=== PATIENT | male | born 1980 | race Caucasian/White ===

== ENCOUNTER 2017-10-05 00:52 | Inpatient (IN) | payer MEDICAID ==
[~2017-10-05] VITALS: Ht 167.6 cm; Wt 66.0 kg
[2017-10-05 02:50] VITALS: BP 152/90
[2017-10-05] MEDS ORDERED: mag hydrox/Alum hydrox/simeth 30ml oral suspension PO PRN (04:15)
[2017-10-05] MEDS ORDERED: metoclopramide 5 mg/ml inj IV PRN (04:15)
[2017-10-05] MEDS ORDERED: HYDROcodone/acetaminophen 5mg/325mg tablet PO PRN (04:15)
[2017-10-05] MEDS ORDERED: morphine 4 MG/ML inj SYRINge IV PRN (04:15)
[2017-10-05] MEDS ORDERED: acetaminophen 650mg rectal suppository RC PRN (04:15)
[2017-10-05] MEDS ORDERED: diphenhydrAMINE 50 mg/ml inj IV PRN (04:15)
[2017-10-05] MEDS ORDERED: ondansetron/PF 4mg/2ml inj IV PRN (04:15)
[2017-10-05] MEDS ORDERED: bisacodyl 10mg suppository rectal RC PRN (04:15)
[2017-10-05] MEDS ORDERED: magnesium hydroxide 30ml (MOM) UD suspension PO PRN (04:15)
[2017-10-05] MEDS ORDERED: acetaminophen 325mg tablet PO PRN (04:15)
[2017-10-05] MEDS: dextrose 5%-1/2 normal saline 1,000 ML IV SCH ×3 (04:47→23:00)
[2017-10-05] MEDS: morphine 4 MG/ML inj SYRINge IV PRN (04:48)
[2017-10-05 06:00] VITALS: BP 118/64
[2017-10-05] MEDS ORDERED: docusate sod 100mg capsule PO SCH (08:00)
[2017-10-05] MEDS: ceFAZolin 1GM/D5W- ADD-VANTAGE 50 ML IV SCH ×2 (08:08→16:03)
[2017-10-05] MEDS: pantoprazole 40mg Tablet.DR PO SCH (08:09)
[2017-10-05 08:43] LABS: BASOPHILS # (AUTO) 0.1 X10'3 (0-0.2); BASOPHILS % (AUTO) 0.4 % (0-1); EOSINOPHILS # (AUTO) 0.4 X10'3 (0-0.9); EOSINOPHILS % (AUTO) 3.2 % (0-6); HEMATOCRIT 41.6 % (42.0-52.0); HEMOGLOBIN 14.4 g/dl (14.0-17.9); LYMPHOCYTES # (AUTO) 2.7 X10'3 (1.1-4.8); LYMPHOCYTES % (AUTO) 21.2 % (21-51); MEAN CORPUSCULAR HEMOGLOBIN 30.9 PG (27.0-31.0); MEAN CORPUSCULAR HGB CONC 34.5 % (33.0-36.5); MEAN CORPUSCULAR VOLUME 89.4 FL (78-98); MEAN PLATELET VOLUME 8.4 FL (7.4-10.4); MONOCYTES # (AUTO) 1.4 X10'3 (0-0.9); MONOCYTES % (AUTO) 11.2 % (2-12); NEUTROPHILS # (AUTO) 8.1 X10'3 (1.8-7.7); PLATELET COUNT 235 X10'3 (140-440); RED BLOOD COUNT 4.66 X10'6 (4.70-6.10); RED CELL DISTRIBUTION WIDTH 12.8 % (11.5-14.5); WHITE BLOOD COUNT 12.7 X10'3 (4.5-11.0)
[2017-10-05 08:54] LABS: PARTIAL THROMBOPLASTIN TIME 28 SECONDS (22-32); PROTHROMBIN TIME 10.5 SECONDS (9.0-12.0)
[2017-10-05 09:00] LABS: ALBUMIN 3.2 G/DL (3.4-5.0); ALBUMIN/GLOBULIN RATIO 0.8 (1.1-1.5); ALKALINE PHOSPHATASE 80 IU/L (46-116); ANION GAP 1 (8-16); ASPARTATE AMINO TRANSFERASE 16 U/L (10-37); BILIRUBIN,TOTAL 0.7 MG/DL (0.1-1.0); BLOOD UREA NITROGEN 9 MG/DL (7-18); BUN/CREATININE RATIO 10.3 (5.4-32.0); CALCIUM 8.8 MG/DL (8.5-10.1); CHLORIDE 101 MMOL/L (99-107); CREATININE 0.87 MG/DL (0.60-1.10); GLUCOSE 101 MG/DL (70-104); POTASSIUM 3.7 MMOL/L (3.5-5.1); SODIUM 133 MMOL/L (135-145); TOTAL CARBON DIOXIDE 30.8 MMOL/L (24-32); TOTAL PROTEIN 7.2 G/DL (6.4-8.2); eGFR > 90 ML/MIN
[2017-10-05 09:16] LABS: ALANINE AMINOTRANSFERASE 18 U/L (12-78)
[2017-10-05 09:44] LABS: CLARITY,URINE Clear (Clear); COLOR,URINE Yellow (Yellow); GLUCOSE, URINE Negative (Neg); KETONES,URINE Negative (Neg); LEUKOCYTE ESTERASE ,URINE Negative (Neg); NITRITES, URINE Negative (Neg); OCCULT BLOOD,URINE Negative (Neg); PH,URINE 6.5 (4.8-8.0); PROTEIN,URINE Negative (Neg)
[2017-10-05 09:45] LABS: UA COLLECTION TYPE CLN CATCH MIDSTREAM
[2017-10-05 09:55] LABS: URINE AMPHETAMINE SCREEN POSITIVE (Neg); URINE BARBITUATE SCREEN NEGATIVE (Neg); URINE BENZODIAZEPINES SCREEN NEGATIVE (Neg); URINE CANNABINOID SCREEN POSITIVE (Neg); URINE COCAINE SCREEN NEGATIVE (Neg); URINE METHADONE SCREEN NEGATIVE (Neg); URINE OPIATE SCREEN POSITIVE (Neg); URINE PHENCYCLIDINE SCREEN NEGATIVE (Neg)
[2017-10-05 10:00] VITALS: BP 119/67
[2017-10-05] MEDS ORDERED: tetanus & diphtheria toxoid (Td) vaccine 0.5ml IMVAC ONE (11:30)
[2017-10-05] MEDS ORDERED: CLIN300C54 PO (14:53)
[2017-10-05] MEDS ORDERED: HYDR-569 PO (14:53)
[2017-10-05] MEDS: nicotine 14mg patch - 24hr TD SCH (16:54)
[2017-10-05 18:00] VITALS: BP 131/53
[2017-10-05] MEDS: lactobacillus rhamnosus 10,000 MMU CELLS/CAPSULE PO SCH (19:39)
[2017-10-05] MEDS ORDERED: temazepam 15mg capsule PO PRN (21:00)
[2017-10-05 22:00] VITALS: BP 147/66
[2017-10-06] MEDS: ceFAZolin 1GM/D5W- ADD-VANTAGE 50 ML IV SCH ×3 (00:11→15:53)
[2017-10-06 06:00] VITALS: BP 127/87
[2017-10-06 06:24] LABS: BASOPHILS # (AUTO) 0.1 X10'3 (0-0.2); BASOPHILS % (AUTO) 0.6 % (0-1); EOSINOPHILS # (AUTO) 0.3 X10'3 (0-0.9); EOSINOPHILS % (AUTO) 3.4 % (0-6); HEMATOCRIT 37.9 % (42.0-52.0); HEMOGLOBIN 13.1 g/dl (14.0-17.9); LYMPHOCYTES # (AUTO) 2.8 X10'3 (1.1-4.8); MEAN CORPUSCULAR HEMOGLOBIN 30.9 PG (27.0-31.0); MEAN CORPUSCULAR HGB CONC 34.5 % (33.0-36.5); MEAN CORPUSCULAR VOLUME 89.5 FL (78-98); MEAN PLATELET VOLUME 8.7 FL (7.4-10.4); MONOCYTES % (AUTO) 9.9 % (2-12); NEUTROPHILS # (AUTO) 5.6 X10'3 (1.8-7.7); NEUTROPHILS % (AUTO) 57.1 % (42-75); PLATELET COUNT 238 X10'3 (140-440); RED BLOOD COUNT 4.23 X10'6 (4.70-6.10); RED CELL DISTRIBUTION WIDTH 12.7 % (11.5-14.5); WHITE BLOOD COUNT 9.8 X10'3 (4.5-11.0)
[2017-10-06 06:44] LABS: ALANINE AMINOTRANSFERASE 21 U/L (12-78); ALBUMIN 2.8 G/DL (3.4-5.0); ALBUMIN/GLOBULIN RATIO 0.8 (1.1-1.5); ALKALINE PHOSPHATASE 67 IU/L (46-116); ANION GAP 9 (8-16); ASPARTATE AMINO TRANSFERASE 13 U/L (10-37); BILIRUBIN,TOTAL 0.2 MG/DL (0.1-1.0); BLOOD UREA NITROGEN 12 MG/DL (7-18); BUN/CREATININE RATIO 14.1 (5.4-32.0); CALCIUM 8.5 MG/DL (8.5-10.1); CHLORIDE 103 MMOL/L (99-107); CREATININE 0.85 MG/DL (0.60-1.10); GLUCOSE 124 MG/DL (70-104); POTASSIUM 3.6 MMOL/L (3.5-5.1); SODIUM 139 MMOL/L (135-145); TOTAL CARBON DIOXIDE 27.1 MMOL/L (24-32); TOTAL PROTEIN 6.5 G/DL (6.4-8.2); eGFR > 90 ML/MIN
[2017-10-06] MEDS: pantoprazole 40mg Tablet.DR PO SCH (08:17)
[2017-10-06] MEDS: lactobacillus rhamnosus 10,000 MMU CELLS/CAPSULE PO SCH ×2 (08:18→19:53)
[2017-10-06] MEDS: nicotine 14mg patch - 24hr TD SCH (08:18)
[2017-10-06] MEDS: HYDROcodone/acetaminophen 10/325mg tab PO PRN ×3 (08:19→22:24)
[2017-10-06] MEDS: morphine 4 MG/ML inj SYRINge IV PRN (10:27)
[2017-10-06] MEDS: dextrose 5%-1/2 normal saline 1,000 ML IV SCH ×2 (10:27→19:53)
[2017-10-06] MEDS ORDERED: iohexol 300mg/ml 100ml inj. ONE (15:59)
[2017-10-06 18:00] VITALS: BP 141/63
[2017-10-07] MEDS: ceFAZolin 1GM/D5W- ADD-VANTAGE 50 ML IV SCH ×4 (00:31→23:59)
[2017-10-07] MEDS: HYDROcodone/acetaminophen 10/325mg tab PO PRN ×4 (04:02→22:55)
[2017-10-07] MEDS: dextrose 5%-1/2 normal saline 1,000 ML IV SCH ×2 (05:19→16:20)
[2017-10-07 05:53] LABS: BASOPHILS # (AUTO) 0.1 X10'3 (0-0.2); BASOPHILS % (AUTO) 0.8 % (0-1); EOSINOPHILS # (AUTO) 0.4 X10'3 (0-0.9); EOSINOPHILS % (AUTO) 4.7 % (0-6); HEMATOCRIT 38.4 % (42.0-52.0); HEMOGLOBIN 13.5 g/dl (14.0-17.9); LYMPHOCYTES # (AUTO) 2.9 X10'3 (1.1-4.8); LYMPHOCYTES % (AUTO) 34.6 % (21-51); MEAN CORPUSCULAR HEMOGLOBIN 31.4 PG (27.0-31.0); MEAN CORPUSCULAR HGB CONC 35.3 % (33.0-36.5); MEAN PLATELET VOLUME 8.4 FL (7.4-10.4); MONOCYTES # (AUTO) 0.7 X10'3 (0-0.9); NEUTROPHILS # (AUTO) 4.3 X10'3 (1.8-7.7); NEUTROPHILS % (AUTO) 51.9 % (42-75); PLATELET COUNT 262 X10'3 (140-440); RED BLOOD COUNT 4.31 X10'6 (4.70-6.10); RED CELL DISTRIBUTION WIDTH 12.8 % (11.5-14.5); WHITE BLOOD COUNT 8.3 X10'3 (4.5-11.0)
[2017-10-07 06:00] VITALS: BP 108/75
[2017-10-07 06:19] LABS: ALANINE AMINOTRANSFERASE 15 U/L (12-78); ALBUMIN 2.8 G/DL (3.4-5.0); ALBUMIN/GLOBULIN RATIO 0.7 (1.1-1.5); ALKALINE PHOSPHATASE 73 IU/L (46-116); ANION GAP 7 (8-16); ASPARTATE AMINO TRANSFERASE 12 U/L (10-37); BILIRUBIN,TOTAL 0.2 MG/DL (0.1-1.0); BLOOD UREA NITROGEN 12 MG/DL (7-18); BUN/CREATININE RATIO 14.6 (5.4-32.0); CALCIUM 8.6 MG/DL (8.5-10.1); CHLORIDE 104 MMOL/L (99-107); CREATININE 0.82 MG/DL (0.60-1.10); GLUCOSE 95 MG/DL (70-104); POTASSIUM 3.9 MMOL/L (3.5-5.1); SODIUM 138 MMOL/L (135-145); TOTAL CARBON DIOXIDE 27.3 MMOL/L (24-32); TOTAL PROTEIN 7.1 G/DL (6.4-8.2); eGFR > 90 ML/MIN
[2017-10-07] MEDS: pantoprazole 40mg Tablet.DR PO SCH (07:20)
[2017-10-07] MEDS: lactobacillus rhamnosus 10,000 MMU CELLS/CAPSULE PO SCH ×2 (07:20→19:54)
[2017-10-07] MEDS: nicotine 14mg patch - 24hr TD SCH (07:21)
[2017-10-07 10:00] VITALS: BP 123/58
[2017-10-07 18:00] VITALS: BP 128/78
[2017-10-07 22:00] VITALS: BP 124/80
[2017-10-07] MEDS: morphine 4 MG/ML inj SYRINge IV PRN (23:01)
[2017-10-08] MEDS: dextrose 5%-1/2 normal saline 1,000 ML IV SCH ×2 (02:41→11:35)
[2017-10-08 06:59] VITALS: BP 121/69
[2017-10-08 07:36] LABS: BASOPHILS # (AUTO) 0.1 X10'3 (0-0.2); BASOPHILS % (AUTO) 0.9 % (0-1); EOSINOPHILS # (AUTO) 0.4 X10'3 (0-0.9); EOSINOPHILS % (AUTO) 4.9 % (0-6); HEMOGLOBIN 13.7 g/dl (14.0-17.9); LYMPHOCYTES # (AUTO) 2.7 X10'3 (1.1-4.8); LYMPHOCYTES % (AUTO) 34.5 % (21-51); MEAN CORPUSCULAR HGB CONC 34.3 % (33.0-36.5); MEAN CORPUSCULAR VOLUME 90.3 FL (78-98); MEAN PLATELET VOLUME 8.9 FL (7.4-10.4); MONOCYTES # (AUTO) 0.6 X10'3 (0-0.9); NEUTROPHILS % (AUTO) 51.7 % (42-75); PLATELET COUNT 293 X10'3 (140-440); RED BLOOD COUNT 4.43 X10'6 (4.70-6.10); RED CELL DISTRIBUTION WIDTH 12.9 % (11.5-14.5); WHITE BLOOD COUNT 7.8 X10'3 (4.5-11.0)
[2017-10-08] MEDS: nicotine 14mg patch - 24hr TD SCH (07:37)
[2017-10-08] MEDS: ceFAZolin 1GM/D5W- ADD-VANTAGE 50 ML IV SCH (07:37)
[2017-10-08] MEDS: lactobacillus rhamnosus 10,000 MMU CELLS/CAPSULE PO SCH (07:37)
[2017-10-08] MEDS: pantoprazole 40mg Tablet.DR PO SCH (07:37)
[2017-10-08] MEDS: HYDROcodone/acetaminophen 10/325mg tab PO PRN ×2 (07:38→12:34)
[2017-10-08 07:56] LABS: ALANINE AMINOTRANSFERASE 19 U/L (12-78); ALBUMIN 2.9 G/DL (3.4-5.0); ALBUMIN/GLOBULIN RATIO 0.7 (1.1-1.5); ALKALINE PHOSPHATASE 71 IU/L (46-116); ANION GAP 8 (8-16); ASPARTATE AMINO TRANSFERASE 12 U/L (10-37); BILIRUBIN,TOTAL 0.1 MG/DL (0.1-1.0); BLOOD UREA NITROGEN 12 MG/DL (7-18); BUN/CREATININE RATIO 14.5 (5.4-32.0); CALCIUM 8.6 MG/DL (8.5-10.1); CHLORIDE 104 MMOL/L (99-107); CREATININE 0.83 MG/DL (0.60-1.10); GLUCOSE 88 MG/DL (70-104); POTASSIUM 4.1 MMOL/L (3.5-5.1); SODIUM 138 MMOL/L (135-145); TOTAL CARBON DIOXIDE 26.1 MMOL/L (24-32); TOTAL PROTEIN 6.8 G/DL (6.4-8.2); eGFR > 90 ML/MIN
[2017-10-08 11:29] VITALS: BP 127/76
[2017-10-08] MEDS ORDERED: CEPH500C5 PO (11:29)
== END 2017-10-08 14:45 | disposition home or self-care (01) | DRG 383 ==
LOC: ORTHO 4S 02:54
PROVIDERS: ADMIT Family Medicine; ATTEND Family Medicine
DX: L03.113 Cellulitis of right upper limb (principal); E87.1 Hypo-osmolality and hyponatremia; I10 Essential (primary) hypertension; F11.10 Opioid abuse, uncomplicated; F15.10 Other stimulant abuse, uncomplicated; F17.200 Nicotine dependence, unspecified, uncomplicated; B95.61 Methicillin susceptible Staphylococcus aureus infection as the cause of diseases classified elsewhere
CPT/HCPCS: 36415; 71045; 73201; 80053; 80305; 81003; 83605; 83735; 84145; 85025; 85610; 85651; 85730; 86140; 87070; 87075; 87077; 87186; 90715; A6209; A6212; A6223; A6446; A6449; J0690; J2270; J7030; Q9967